=== PATIENT | male | born 1955 | race American Indian/Alaskan Native ===

== ENCOUNTER 2016-11-21 10:04 | Outpatient (CLI) | payer OTHER ==
--- NOTE | 2016-11-21 11:01 | XRay Report ---
LUMBOSACRAL SPINE, 3 VIEWS: History: Low back pain, neuropathy Findings: Normal bone mineralization. No compression deformity, malalignment or bone lesion is appreciated. There is mild multilevel disc space narrowing. There is moderate multilevel facet arthropathy. Mild symmetric osteoarthritic changes in the SI joints. Impression: Multilevel lumbar spondylosis. No acute process.
== END 2016-11-21 10:05 | disposition home or self-care (01) ==
LOC: EDBD 10:04 → XRAY 10:04
PROVIDERS: ATTEND Internal Medicine
DX: M47.896 Other spondylosis, lumbar region (principal); M12.88 Other specific arthropathies, not elsewhere classified, other specified site; E13.40 Other specified diabetes mellitus with diabetic neuropathy, unspecified; I10 Essential (primary) hypertension; E55.9 Vitamin D deficiency, unspecified; G47.30 Sleep apnea, unspecified
CPT/HCPCS: 72100